=== PATIENT | male | born 1985 | race Two or more races ===

== ENCOUNTER 2025-07-07 14:26 | Emergency (ER) | payer OTHER, SELFPAY ==
[2025-07-07 14:50] VITALS: BP 150/99; PULSE 106; RESP 20; TEMP 36.6; O2SAT 95; BMI 34.9
--- NOTE | 2025-07-07 14:59 | XR_ITS ---
Examination: CT abdomen and pelvis without contrast. Coronal 3-D reconstructions. Sagittal 2-D reconstructions. Date and time of exam: 07/07/2025, 4:00 p.m. CTDI: vol (mGy): 11.0 DLP: (mGycm): 772 Technique: Axial images of the abdomen have been obtained, 3 mm slice thickness Intravenous contrast material has not been administered. Low dose protocols were performed. One or more of the following dose reduction techniques were used; automated exposure control, adjustment of the mA and/or KV according to patient size, use of iterative reconstruction technique. Findings: Lack of intravenous contrast limits evaluation of solid organs, vasculature, and lymph nodes. Lower thorax: No pleural effusions. Scattered very mild bilateral subsegmental atelectasis. No airspace consolidation. Heart size is within normal limits. Liver: The liver measures 22.5 cm in craniocaudal dimension and demonstrates smooth margins and homogeneous attenuation. Biliary system: The gallbladder is decompressed at time of imaging. No calcified gallstones or findings concerning for acute cholecystitis or biliary ductal obstruction. Spleen: Within normal limits of size. No discrete mass. Pancreas: No contour deforming mass or overt main pancreatic duct dilatation. No evidence for acute inflammation. Adrenal glands: No significant findings. Kidneys: No contour-deforming solid mass. Approximately 2 mm nonobstructing right renal calculus noted. No left-sided renal calculi or hydronephrosis. Bladder: No calculi or discrete mass. Pelvic organs: No masses or acute findings. Minimal prostate calcification. Bowel/Peritoneal cavity: Limited assessment without IV and oral contrast. 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 No evidence for pneumatosis or pneumoperitoneum. The stomach is distended with fluid. Lymph nodes/retroperitoneum: No pathologically enlarged lymph nodes or other masses. No hematoma or other abnormal collections. Vessels: No abdominal aortic aneurysm. Small caliber inferior IVC and bilateral proximal common iliac veins may be due to hypovolemia. May-Thurner syndrome not excluded. Abdominal/Pelvic wall: Postsurgical changes noted. No incarcerated hernia along the anterior abdominal wall. Musculoskeletal: No recent fractures or tumor suspicious lytic or blastic lesions. 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 Surgery consultation is recommended. Critical findings were discussed with Mr. Kaiden Burden NP, via telephone on 07/07/2025 4:23 PM.
--- NOTE | 2025-07-07 15:00 | EDRME_ITS ---
Rapid Medical Screening Exam [facility] Arrival date/time: 07/07/25 14:26 40-year-old male presents to the Emergency Department of complaint of abdominal pain Chief Complaint: Abdominal Pain Vital signs: Vital Signs Temperature 97.9 F 07/07/25 14:50 Pulse Rate 106 H 07/07/25 14:50 Respiratory Rate 20 07/07/25 14:50 Blood Pressure 150/99 H 07/07/25 14:50 Pulse Oximetry (%) 95 07/07/25 14:50 Oxygen Delivery Method Room Air 07/07/25 14:50 Vital signs reviewed by provider: Yes Exam: Abdominal pain Clinical Impression: Lab work and imaging ordered
[2025-07-07 16:01] LABS: Basophils # (Auto) 0.1 Thou/mm3 (0.0-0.2); Basophils % (Auto) 0 % (0-2.5); Eosinophils # (Auto) 0.1 Thou/mm3 (0.0-0.5); Eosinophils % (Auto) 1 % (0-10); Hematocrit 49.2 % (41.0-53.0); Hemoglobin 17.2 g/dL (13.5-16.0); Immature Granulocytes Auto 0.05 Thou/mm3 (0.00-0.00); Lymphocytes # (Auto) 1.5 Thou/mm3 (1.0-4.8); Lymphocytes % (Auto) 11 % (10-50); Mean Corpuscular HGB Conc 35.0 g/dl (31.0-37.0); Mean Corpuscular Hemoglobin 30.4 pg (25.0-35.0); Mean Corpuscular Volume 87 fL (80-100); Monocytes # (Auto) 0.6 Thou/mm3 (0.0-0.8); Monocytes % (Auto) 4 % (0-12); Neutrophils # (Auto) 11.6 Thou/mm3 (1.8-7.7); Neutrophils % (Auto) 84 % (37-80); Nucleated Red Blood Cell # 0.00 Thou/mm3 (0.00-0.00); Nucleated Red Blood Cell % 0 /100 WBC (0); Platelet Count 325 Thou/mm3 (140-440); RDW Standard Deviation 42.4 fL (35.1-43.9); Red Blood Count 5.66 Miln/mm3 (4.50-5.90); White Blood Count 13.9 Thou/mm3 (3.8-10.6)
[2025-07-07 16:16] LABS: Alanine Aminotransferase 48 U/L (10-49); Albumin, Serum 5.3 gm/dL (3.5-5.0); Albumin/Globulin Ratio 2.1 (1.2-2.2); Alkaline Phosphatase 101 U/L (46-116); Anion Gap 11 (7-16); Aspartate Amino Transferase 31 U/L (0-34); BUN/Creatinine Ratio 16 Ratio (12-20); Bilirubin,Total 0.8 mg/dL (0.3-1.2); Blood Urea Nitrogen 16 mg/dL (9-23); Calcium 9.8 mg/dL (8.3-10.6); Calcium (Corrected) 9.8 mg/dL (8.5-10.1); Carbon Dioxide 25.2 mMol/L (20.0-31.0); Chloride 104 mMol/L (98-107); Creatinine (Component) 1.0 mg/dL (0.6-1.3); Estimated Creatinine Clearance 115.0 mL/min (>60); Globulin 2.5 gm/dL (2.3-3.5); Glucose 138 mg/dL (74-106); Lipase 41 U/L (12-53); Osmolality,Calculated 282 (275-295); Potassium 4.0 mMol/L (3.4-5.1); Sodium 140 mMol/L (136-145); Total Protein 7.8 gm/dL (5.7-8.2); eGFR > 60 See Note
--- NOTE | 2025-07-07 16:48 | PD.EDABDPN ---
ED Abdominal Pain RME/HPI General Chief Complaint: Abdominal Pain Stated complaint: ABD PAIN (02/09) Time seen by provider: 07/07/25 16:31 Arrival date/time: 07/07/25 14:26 40-year-old male patient came in for evaluation regarding abdominal pain. Onset of symptoms since early this morning sudden onset of abdominal pain, associated with nausea and vomiting, severity moderate. Denies any fever. Denies any diarrhea or constipation had a very small bowel movement this morning. Currently patient is not passing gas. Patient had multiple abdominal surgery, he was born with gastroschisis, had a surgery when he was , another surgery for small bowel obstruction at 9-year-old and when he was 25-year-old. Patient denies any fever. Denies any other complaints. RME / HPI RME / HPI narrative: 07/07/25 14:26 40-year-old male presents to the Emergency Department of complaint of abdominal pain Exam: Abdominal pain Impression: Lab work and imaging ordered Related Data Previous Rx's ?Medication ?Instructions ?Recorded ibuprofen 800 mg tablet 800 mg PO TID PRN pain #30 tabs 07/04/24 Allergies Allergy/AdvReac Type Severity Reaction Status Date / Time No Known Allergies Allergy Verified 07/07/25 14:28 Review of Systems Review of Systems Narrative Review of Systems: Review of system reviewed and within normal limits except mentioned in HPI ED Exam Narrative Physical exam: VITAL SIGNS: Reviewed. GENERAL APPEARANCE: Alert and interactive, follows commands, no acute distress, HEAD AND FACE: Non-traumatic. ENT: PERRL, pink conjunctivitis, eyelid no trauma, Mucous membrane moist. NECK: Supple, nontender, no nuchal rigidity. CHEST: No tenderness, no crepitus, no paradoxical movement, no retractions. LUNGS: Clear, well ventilated, symmetric, no rales, no wheezing, no ronchi, no stridor, good breath sounds bilaterally. HEART: Regular rate, regular rhythm, no murmur, no gallops. ABDOMEN: Soft, hyperactive bowel sounds, slightly distended, no guarding, diffuse tenderness,, no rebound, no masses, multiple scar noted on the abdomen RECTAL: Deferred. GENITAL: Deferred. NEUROLOGICAL: Gross motor function intact sensory function intact, Appropriate for age. MUSCULOSKELETAL: low back nontender, full range of motion. EXTREMITIES: Nontender, full range of motion. SKIN: Color pink, dry, no rash, no lacerations, no abrasions, no contusions. LYMPHATICS: Deferred. 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 Stat Cons 07/07/25 16:54 Active Diet NPO (NOW) Diet 07/07/25 16:[address] abdomen pelvis wo con Stat Exams 07/07/25 14:59 Completed CBC Stat Lab 07/07/25 15:23 Completed Comprehensive Metabolic Panel Stat Lab 07/07/25 15:23 Completed Lactate (Lactic Acid) Stat Lab 07/07/25 17:05 Completed Lipase Stat Lab 07/07/25 15:23 Completed UA, C/S IF [Urinalysis, C/S if Indicated] Stat Lab 07/07/25 14:59 Ordered Morphine* Inj Med 07/07/25 16:42 Discontinued 4 mg IVP X1 ONE Ondansetron Inj [Zofran Inj] Med 07/07/25 16:42 Discontinued 4 mg IVP X1 ONE Piper/Tazo 3.375 gm Premix [Zosyn] Med 07/07/25 16:56 Discontinued 3.375 gm in 50 ml IV X1 Ringers Lactated 1000 ml [Lactated Ringers] 1,000 ml Med 07/07/25 16:43 Discontinued IV 999 mls/hr Vital Signs Vital signs: Vital Signs Temperature 97.9 F 07/07/25 14:50 Pulse Rate 106 H 07/07/25 14:50 Respiratory Rate 20 07/07/25 14:50 Blood Pressure 150/99 H 07/07/25 14:50 Pulse Oximetry (%) 95 07/07/25 14:50 Oxygen Delivery Method Room Air 07/07/25 14:50 Abdominal Pain MDM MDM Narrative MDM Narrative:: 40-year-old male patient came in for evaluation regarding abdominal pain. Onset of symptoms since early this morning sudden onset of abdominal pain, associated with nausea and vomiting, severity moderate. Denies any fever. Denies any diarrhea or constipation had a very small bowel movement this morning. Currently patient is not passing gas. Patient had multiple abdominal surgery, he was born with gastroschisis, had a surgery when he was , another surgery for small bowel obstruction at 9-year-old and when he was 25-year-old. Patient denies any fever. Denies any other complaints. CBC showed leukocytosis of 13.9 rest of the labs unremarkable. 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 Surgery consultation is recommended. Critical findings were discussed with Mr. Kaiden Burden NP, via telephone on 07/07/2025 4:23 PM. I spoke with Dr. Bonilla/General surgeon on-call, who told me to transfer the patient to higher level care Patient received IV fluids, morphine and Zofran, and a G-tube was inserted While in the emergency room patient went to the restroom, and had to bowel movement. On reevaluation patient's abdominal pain is totally gone. Patient was evaluated by Dr. Leila Bonilla, general surgeon prior to discharge, and told me that patient stable for discharge home was advised to return to emergency room for recurrence or worsening of symptoms. Patient data External records reviewed:: None Clinical information provided by:: patient Social determinants that could affect healthcare access:: none Patient has the following chronic illnesses:: History of small bowel obstruction How is presenting disease/condition affected by chronic disease/condition?: exacerbated by Evaluation data The following diagnostics were reviewed and interpreted by me:: lab results and radiology exam(s) Lab and/or radiology exams considered but not ordered:: None Interpretation Summary: See results MDM Medications / Prescriptions Medications or Prescriptions considered but not ordered:: None Medication administrations:: Medication Administration History Discontinued Medications Lactated Ringer's (Lactated Ringers) 1,000 mls @ 999 mls/hr IV .Q1H1M ONE Stop: 07/07/25 17:43 Last Infusion: 07/07/25 18:45 Dose: Infused Documented By: Admin: 07/07/25 17:17 Dose: 999 mls/hr Documented By: SHANICE Piperacillin/Tazobactam/Dextrose (Zosyn) 3.375 gm in 50 mls @ 100 mls/hr IV X1 ONE; Protocol Stop: 07/07/25 17:25 Last Infusion: 07/07/25 17:47 Dose: Infused Documented By: Admin: 07/07/25 17:17 Dose: 100 mls/hr Documented By: EF Morphine Sulfate (Morphine Sulf Inj 4 Mg/Ml Vial) 4 mg IVP X1 ONE Stop: 07/07/25 16:43 Ondansetron HCl (Ondansetron Inj 2 Mg/Ml Inj 2 Ml) 4 mg IVP X1 ONE; Protocol Stop: 07/07/25 16:43 Last Admin: 07/07/25 17:17 Dose: 4 mg Documented By: EF IV fluids, morphine, Zofran, and IV Zosyn Consultations Consultation(s) initiated? (list below): No Diagnosis Differential diagnosis abdominal pain: abdominal pain, constipation, diverticulitis and other (Midgut volvulus) Most likely diagnosis given after review of the tests above:: A lot of pain, Admission Indicated Admission indicated?: not indicated Admission Request Was there a request for admission?: No Disposition Plan Disposition Plan: Discharge Discharge Attestation Discharge Attestation: The patient and all family members were given an opportunity to ask questions and understood the discharge instructions. Discharge instructions specifically effects, indications for sooner follow up or return to the emergency department, and the expected course of current diagnosis. Patient condition: Stable Discharge Plan Plan Patient Disposition: HOME (Self Care) Discharge Disposition comment: Stable Prescriptions/Referrals Prescriptions/Med Rec: No Action ibuprofen 800 mg tablet 800 mg PO TID PRN (Reason: pain) Qty: 30 0RF Referrals: Kendy Gomes DICTAPHONE OPERATOR [Primary Care Provider] - In 1 week Problem List Clinical Impression: Abdominal pain Patient/Caregiver Discharge Instructions Discharge Activity: activity as tolerated Education Materials: Abdominal Pain Additional Instructions: Thank you for the opportunity for serving you today. You are stable for discharged . You are advised to: Follow-up with your PCP in 1 to 2 days Return to ED for worsening of symptoms, vomiting, worsening abdominal pain Increase oral fluids Liquid diet for the next 24 hours increase as tolerated Print Language: Tanzanian Stand Alone Forms: Kristi Award Info., Patient Portal Info Letter
[2025-07-07 16:49] VITALS: BP 132/89; PULSE 87; RESP 16; TEMP 36.4; O2SAT 95
[2025-07-07 17:11] LABS: Lactate (Lactic Acid) 1.2 mMol/L (0.4-2.0)
[2025-07-07] MEDS: RINGERS LACTATED 1000 ML 1,000 ML 999 ML IV (17:17)
[2025-07-07] MEDS: PIPER/TAZO 3.375 GM PREMIX 3.375 GM/50 ML BAG IV (17:17)
[2025-07-07] MEDS: ONDANSETRON INJ 2 MG/ML INJ 2 ML 4 MG IVP (17:17)
--- NOTE | 2025-07-07 17:17 | PC.CC ---
Addendum entered by Asif Ferraro RN 07/07/25 18:39: 1827: called and spoke to Jennifer w/ [facility] to cancel transfer request. 182: spoke to Kalyani, he confirmed transfer is canceled and pt will be admitted. 1822: Dr Bonilla called back stated he hasn't seen the patient and will not be transferred. Pt will be admitted to the hospital. He stated transfer is canceled. Addendum entered by Asif Ferraro RN 07/07/25 18:03: 1759: Called Dr. Bonilla, left messaged on to return my call. Informed Jennifer I will her back once I Dr. Bonilla calls. 175: Jennifer called back for a peer to peer with her surgeon Dr. Chaparro and Dr. Bonilla. Original Note: 171: Jennifer spoke to Kalyani. Clinical condition provided. Jennifer will review and present to team and call back. 1711: Initiated transfer request w/ Jennifer at [facility]. 1711: Sent clinicals to [facility], [facility], and [facility]. Sent imaging to [facility] and [facility]. 1701: received call from Kalyani Wan to transfer for General or colon surgeon for complicated SBO d/t multiple abd surgeries/midgut vovulus obstruction. HLOC requested per Dr. Gardner.
[2025-07-07 17:39] VITALS: BP 142/91; PULSE 83; RESP 19; TEMP 36.7; O2SAT 96
[2025-07-07 18:19] VITALS: BP 154/98; PULSE 87; RESP 18; TEMP 37; O2SAT 97
[2025-07-07 19:31] VITALS: BP 142/89; PULSE 75; RESP 18; TEMP 37.1; O2SAT 98
== END 2025-07-07 19:32 | disposition home or self-care (01) ==
PROVIDERS: Nurse Practitioner Family; Nurse Practitioner Primary Care; Emergency Provider Emergency Medicine; PCP Nurse Practitioner Primary Care
DX: R10.9 Unspecified abdominal pain (principal)
CPT/HCPCS: 36415; 74176; 80053; 81001; 83605; 83690; 85025; 96361; 96365; 96375; 99284; J2405; J2543; J7120